=== PATIENT | male | born 1945 ===

== ENCOUNTER 2018-03-02 09:53 | Day surgery (SDC) | payer MEDICARE ==
[2018-02-24 13:48] VITALS: BMI 29.5
[2018-03-02] MEDS ORDERED: Propofol 10 mg/ml Inj (20 ML) ONE (11:48)
[2018-03-02] MEDS ORDERED: Etomidate 20 mg/10ml Inj IV ONE (11:48)
[2018-03-02] MEDS ORDERED: Midazolam 2 MG/2 ML VIAL ONE (11:48)
[2018-03-02] MEDS ORDERED: Ciprofloxacin 400mg/200ml D5W 400 MG/200 ML BAG IVPB ONE (11:48)
[2018-03-02] MEDS ORDERED: Lactated Ringer's 1,000 ML IV ONE (11:50)
[2018-03-02] MEDS ORDERED: Ciprofloxacin 400mg/200ml D5W IVPB ONE (11:55)
[2018-03-02] MEDS ORDERED: ePHEDrine 50 mg/ml Inj ONE (12:16)
[2018-03-02 14:04] VITALS: RESP 18
[2018-03-02 15:13] VITALS: BP 140/85; PULSE 56; TEMP 97.6; O2SAT 9
--- NOTE | 2018-03-06 16:40 | OP ---
PROCEDURE DATE: 03/02/2018 PREOPERATIVE DIAGNOSIS: Phimosis with a penile lesion. POSTOPERATIVE DIAGNOSIS: Phimosis with a penile lesion. PROCEDURE PERFORMED: Circumcision followed by excision of a penile lesion. DESCRIPTION OF PROCEDURE: The patient was placed on the operating room table in a supine position. The area of the groin was draped and prepped in a sterile manner. Using dorsal and ventral crushing clamps, we bivalved the foreskin and then removed the redundant foreskin. I approximated those skin edges using multiple interrupted 4-0 chromic suture. There were some minimal bleeders that were cauterized. Following this, there was a lesion on the right shaft at the penis, probably 2 cm in total size. Using a scalpel, I made an elliptical incision around this lesion, removed it, and then approximated the skin edges with multiple interrupted 4-0 chromic sutures. Once this was done, the specimen was sent for analysis and the patient then was taken from the operating room in good condition. Lor Greer MD
== END 2018-03-02 15:50 | disposition home or self-care (01) ==
LOC: H.OPSURG 09:53
PROVIDERS: ATTEND Urology
DX: N47.1 Phimosis (principal); J44.9 Chronic obstructive pulmonary disease, unspecified; M19.90 Unspecified osteoarthritis, unspecified site; E11.9 Type 2 diabetes mellitus without complications; I10 Essential (primary) hypertension; L82.1 Other seborrheic keratosis
CPT/HCPCS: 54161; 82948; 88304; 88305; J0744; J2001; J2250; J2270; J2704; J3010; J7030; J7120